=== PATIENT | female | born 1990 | race Asian ===

== ENCOUNTER → 2016-10-03 | Outpatient (CLI) | payer OTHER ==
[~2016-10-03] MED LIST: PRENTAB65 PO
[2016-10-03 12:44] LABS: GTGD 50 Grams
[2016-10-04 15:00] LABS: AFP CONCENTRATION 33.7 NG/ML; AFP MULTIPLE OF MEDIAN 0.85; AFPTS GESTATIONAL AGE 15.6 WEEKS; AFPTS INSULIN DEP DIABETIC? NO; AFPTS MATERNAL WT 102 LBS; EDD DETERMINED BY ULTRASOUND; ESTRIOL MULTIPLE OF MEDIAN 0.75; HISTORY OF NTD NO; INHIBIN A 458 PG/ML; INHIBIN A MOM 2.02; REPEAT SAMPLE? NO; hCG MULTIPLE OF MEDIAN 2.46
== END | disposition home or self-care (01) ==
LOC: C.LAB1850 10:50
PROVIDERS: ATTEND Obstetrics & Gynecology
DX: O26.842 Uterine size-date discrepancy, second trimester (principal)

== ENCOUNTER → 2016-10-11 | Outpatient (CLI) | payer OTHER | END | disposition home or self-care (01) | LOC: C.LAB1850 09:15 | PROVIDERS: ATTEND Obstetrics & Gynecology | DX: O28.1 Abnormal biochemical finding on antenatal screening of mother (principal); Z3A.00 Weeks of gestation of pregnancy not specified ==

== ENCOUNTER → 2017-01-04 | Outpatient (CLI) | payer OTHER ==
[2017-01-04 12:39] LABS: HEMATOCRIT 32.9 % (37-47)
[2017-01-04 17:51] LABS: URINE APPEARANCE CLEAR (CLEAR); URINE BILIRUBIN NEG (NEG); URINE COLOR YELLOW; URINE EPITHELIAL CELL AUTO >30 /lpf (0-5); URINE NITRITE NEG (NEG); URINE PH 7.5 (4.5-7.5); URINE SPECIFIC GRAVITY 1.014 (1.000-1.030); UROBILINOGEN NEG (NEG)
[2017-01-04 17:57] LABS: MANUAL MICROSCOPIC REQUIRED? NO; REVIEW REQ? YES
== END | disposition home or self-care (01) ==
LOC: C.LAB1850 10:08
PROVIDERS: ATTEND Obstetrics & Gynecology
DX: Z34.82 Encounter for supervision of other normal pregnancy, second trimester (principal)

== ENCOUNTER 2017-02-09 10:00 | Emergency (ER) | payer OTHER ==
[~2017-02-09] VITALS: Ht 154.9 cm; Wt 61.6 kg
[2017-02-09 10:03] VITALS: TEMP 36.7; Ht 154.9 cm; Wt 61.6 kg
--- NOTE | 2017-02-09 10:43 | EMERGENCY ROOM VISIT NOTE ---
ED Visit Note First contact with patient: 10:37 CHIEF COMPLAINT: Finger laceration HISTORY OF PRESENT ILLNESS: This 27-year-old female patient presents to the emergency department ambulatory after cutting the left third finger just prior to arrival. She accidentally cut her finger with a paring knife. The bleeding has stopped. Denies weakness or numbness of the finger. The patient has full range of motion of the fingers. The patient denies any pain. The patient denies any other injuries. The patient's tetanus shot is up to date. REVIEW OF SYSTEMS: A 6 system review of systems was completed with positives and pertinent negatives listed in the HPI. ALLERGIES: No known drug allergies MEDICATIONS: The patient is 33 weeks . PMH: vitamins SOCIAL HISTORY: The patient lives locally with family PHYSICAL EXAM: Vital Signs: Reviewed Nurse's notes, vital signs stable. GENERAL : This is a 27-year-old female, in no acute distress, well developed, well nourished. SKIN: There is a 1 cm long laceration on the flap-like aspect of the left third9 finger. The edges gape apart with traction. There is no foreign material in the wound and it looks clean. There is no bleeding. No deep structures such as tendons, bones, or nerves are seen in the base of the wound. Extension and flexion of the finger is full and strong. Full range of motion of the wrist and other fingers. Capillary refill less than 2 seconds. Normal sensation to light and sharp touch. EMERGENCY DEPARTMENT COURSE: I examined the patient. Using sterile technique the wound was cleaned with Betadine. 4 ml of 1% buffered lidocaine was used to perform a digital block to anesthetize the patient. The area was sterilely draped. Once the patient was numb, the wound was copiously irrigated under pressure with sterile saline. The wound was explored and there were no deep structures such as tendons, bone, or ligaments present. The laceration was repaired using 5 simple interrupted 5-0 nylon sutures. The patient tolerated the procedure well. The bleeding stopped. The area was cleaned with sterile saline and dressed with bacitracin ointment and bandage. The patient was discharged home in good condition. DIAGNOSIS: Finger laceration DISCHARGE INSTRUCTIONS & TREATMENT: Keep wound clean and dry. Do not allow any crusting or dried blood to accumulate on sutures. If this occurs, use a 1:1 solution of hydrogen peroxide/water on a Q-tip to clean the wound. Use an antibiotic ointment for 3-4 days, then let wound dry. Suture removal in 10-12 days. Return sooner for any signs of infection (increasing redness, swelling, drainage). Ice and elevate for swelling and pain.Keep covered when in sun until sutures removed then SPF 50 or higher for one year. Vitamin E oil if desired two weeks after suture removal for reduction of scar. Current/Historical Medications Scheduled Multivit-Min W/Fe-Fa (), 1 TAB PO DAILY Allergies Coded Allergies: No Known Allergies (Unverified , 02/09/17) Vital Signs Date Time Temp Pulse Resp B/P Pulse Ox O2 Delivery O2 Flow Rate FiO2 02/09/17 11:37 74 14 112/70 99 02/09/17 10:03 36.7 79 18 120/81 98 Room Air Departure Information Impression Primary Impression: Laceration of finger Dispostion Home / Self-Care Condition GOOD Referrals No Doctor, Assigned (PCP) Patient Instructions ED Laceration All, My [facility] Additional Instructions Keep wound clean and dry. Do not allow any crusting or dried blood to accumulate on sutures. If this occurs, use a 1:1 solution of hydrogen peroxide/ water on a Q-tip to clean the wound. Use an antibiotic ointment for 3-4 days, then let wound dry. Suture removal in 10-12 days. Return sooner for any signs of infection (increasing redness, swelling, drainage). Ice and elevate for swelling and pain.Keep covered when in sun until sutures removed then SPF 50 or higher for one year. Vitamin E oil if desired two weeks after suture removal for reduction of scar. Problem Qualifiers Primary Impression: Laceration of finger Encounter type: initial encounter Qualified Codes: S61.219A - Laceration without foreign body of unspecified finger without damage to nail, initial encounter
[2017-02-09] MEDS ORDERED: XYLOCAINE 1%/SOD BICARB 20 ML VIAL INFIL ONE (10:45)
[2017-02-09] MEDS ORDERED: PRENTAB65 PO (10:52)
[2017-02-09 11:37] VITALS: BP 112/70; PULSE 74; O2SAT 99
== END 2017-02-09 11:45 | disposition home or self-care (01) ==
LOC: C.EDB 10:02
DX: O9A.213 Injury, poisoning and certain other consequences of external causes complicating pregnancy, third trimester (principal); S61.213A Laceration without foreign body of left middle finger without damage to nail, initial encounter; W26.0XXA Contact with knife, initial encounter

== ENCOUNTER → 2017-02-28 | Outpatient (CLI) | payer OTHER | END | disposition home or self-care (01) | LOC: C.LABSPEC 15:49 | PROVIDERS: ATTEND Obstetrics & Gynecology | DX: O24.410 Gestational diabetes mellitus in pregnancy, diet controlled (principal) ==

== ENCOUNTER 2017-03-13 12:42 | Inpatient (IN) | payer OTHER ==
[~2017-03-13] VITALS: Ht 154.9 cm; Wt 52.3 kg
[2017-03-13] MEDS ORDERED: LACTATED RINGER'S 1000ML 1,000 ML IV PRN (13:10)
[2017-03-13 13:23] VITALS: Ht 154.9 cm; Wt 52.3 kg
[2017-03-13 13:54] LABS: HEMATOCRIT 38.4 % (37-47); MEAN CELL VOLUME 88.7 fL (80-100); MEAN CORPUSCULAR HEMOGLOBIN 30.7 pg (25-34); MEAN CORPUSCULAR HGB CONC 34.6 g/dl (32-36); MEAN PLATELET VOLUME 10.2 fL (7.4-10.4); PLATELET COUNT 155 K/uL (130-400); RED BLOOD COUNT 4.33 M/uL (4.2-5.4); WHITE BLOOD COUNT 6.79 K/uL (4.8-10.8)
[2017-03-13] MEDS: LACTATED RINGER'S 1000ML 1,000 ML IV SCH ×2 (15:08→16:38)
--- NOTE | 2017-03-13 15:29 | Medical Student: [facility] ---
Med Student History & Physical Date of Service Mar 13, 2017. Chief Complaint Check Labor History of Present Illness Source: patient Kae is a 27-year-old with an LEONARDO of 03-23-17 (confirmed by ultrasound on ) with a GA of 38.4 who presented today due to spontaneous rupture of membranes. Her has been complicated by gestational diabetes, which is currently diet-controlled. She has a history of an abnormal quad screen on positive for Down syndrome but a Panorama within normal limits. Today, she has noticed blood in the mucus plug but otherwise has not experienced vaginal bleeding. She says she is experiencing two contractions an hour. + ROM. Feels movements. Labs: O+ blood. Antibody negative. 1 hour screen with glucola = 134 mg/dL. Nonreactive VDRL/RPR. HBsAg negative. Rubella immune. GBS negative. Chlamydia/gonorrhea negative. Hct/Hb (01/04/2017) - 32.9/11.3 Hct/Hb (03/13/2017) - 38.4/13.3 CBC (03/13/17) - RBC 4.33, WBC 6.79, Plt 155 OB History G1: Elective at 6-7 weeks GA on 07/12/2014. JOB COACHING History Menarche at age 11. LMP 06/13/16. Typical menstrual cycle lasts 30-31 days. Flow is described as moderate to heavy. No history of OCP use or STDs. Last Pap smear occurred in 2015. No hx of abnormal Pap smears. History of vulvar cyst with subsequent surgical removal. Past Medical History Negative for DM, HTN, or other chronic conditions. Past Surgical History Vulvar cyst removal. Social History Does not drink alcohol. Never smoker. Does not use smokeless tobacco or illicit drugs. Lives with her Joshua, who is the father of the baby. 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) Allergies Coded Allergies: No Known Allergies (Unverified , 02/09/17) Home Medications Multivit-Min W/Fe-Fa (), 1 TAB PO DAILY Review of Systems Constitutional: No fever, No chills Eyes: No worsening of vision Respiratory: No shortness of breath, No dyspnea on exertion, No dyspnea at rest Cardiovascular: No chest pain, No edema Abdomen: No pain, No nausea, No vomiting, No diarrhea, No constipation Musculoskeletal: No swelling, No calf pain Genitourinary - Female: No dysuria, No problem reported Physical Exam Fundal Height: 37.5 cm Heart was clear to auscultation with no murmurs, rubs, or gallops. Lungs were clear to auscultation bilaterally. Abdominal exam reveals a soft and nontender gravid uterus. Fundal height measured 37.5 cm. Extremities were absent of edema or tenderness. Monitoring External Monitor: EFM demonstrates moderate variability. Baseline HR is 125 bpm. Absent decelerations. Absent accels. Tocodynamometer: Demonstrates contractions every 7 minutes. Laboratory Results Test 03/13/17 13:33 Assessment and Plan Ni is a 27-year-old female at 38.4 weeks GA complicated by GDM. tracing category I. For now, expectant management. Continue with EFM.
[2017-03-13] MEDS ORDERED: EpHEDrine SULFATE INJ 50 MG/ML AMP ONE (15:55)
[2017-03-13] MEDS ORDERED: FENTANYL 2MCG/ML ROPIV 1.25MG/ML 100ML BAG EPI ONE (15:55)
[2017-03-13] MEDS ORDERED: BUPIVACAINE 0.25% 30 ML VIAL ONE (15:55)
[2017-03-13] MEDS ORDERED: FENTANYL CITRATE INJ 50 MCG/1 ML 2 ML VIAL ONE (15:56)
[2017-03-13] MEDS ORDERED: NALOXONE HCL INJ 1 MG in SODIUM CHLORIDE 0.9% 1000ML 1,000 ML IV PRN (16:46)
[2017-03-13] MEDS ORDERED: LACTATED RINGER'S 1000ML 500 ML IV PRN (16:46)
[2017-03-13] MEDS ORDERED: DiphenhydrAMINE HCL 50 MG/ML VIAL IV PRN (17:00)
[2017-03-13] MEDS ORDERED: NALBUPHINE HCL INJ 10 MG/ML AMP IV PRN (17:00)
[2017-03-13] MEDS ORDERED: ONDANSETRON INJ 2 MG/ML 2 ML VIAL IV PRN (17:00)
[2017-03-13] MEDS ORDERED: EpHEDrine SULFATE INJ 50 MG/ML AMP IV PRN (17:00)
[2017-03-13] MEDS ORDERED: FENTANYL 2MCG/ML ROPIV 1.25MG/ML 100ML BAG EPI PRN (17:00)
[2017-03-13] MEDS ORDERED: NALOXONE HCL INJ 0.4 MG/1 ML VIAL/CARP IV PRN (17:00)
[2017-03-13] MEDS ORDERED: OXYTOCIN 30 UNITS/500ML NSS IV ONE (20:26)
[2017-03-13] MEDS ORDERED: HYDROCORTISONE ACETATE 25 MG SUPP PR PRN (21:00)
[2017-03-13] MEDS ORDERED: OXYTOCIN 30 UNITS/500ML NSS IV PRN (21:00)
[2017-03-13] MEDS ORDERED: SUPERCREAM 0.870 % 15GM JAR EXT PRN (21:00)
[2017-03-13] MEDS ORDERED: LANOLIN OINT EXT PRN ×2 (21:00)
[2017-03-13] MEDS ORDERED: BENZOCAINE 20% AER SPR 82.5 GM CAN EXT PRN (21:00)
[2017-03-13] MEDS ORDERED: OXYCODONE/ACETAMINOPHEN 5-325 TAB PO PRN (21:00)
--- NOTE | 2017-03-13 21:15 | Vaginal Delivery Summary ---
Vaginal Delivery Summary VAGINAL DELIVERY SUMMARY The patient progressed to complete with epidural anesthesia and began to push. She spontaneously vaginally delivered a viable female from the left occiput anterior position. The head delivered, followed by the anterior shoulder, followed by the body. No nuchal cord was noted. The baby was placed on mother's abdomen and warmed and dried. A spontaneous cry was heard. The cord was doubly clamped and cut. A segment was retained for cord gases. Cord blood was obtained. The placenta delivered spontaneously intact with a three vessel cord. The uterus and vagina were swept of all clots and debris. Pitocin was given. The uterus became firm. The cervix, vagina and perineum were inspected and a first degree perineal laceration was noted and repaired in standard fashion with 3-0 vicryl. Excellent hemostasis was noted. Sponge, instrument and needle counts were correct x 2 at the conclusion of the delivery. The patient and baby recovered in the room in stable and good condition. EBL 300ml. Apgars 7/9 Weight pending; please see nursery notes.
[2017-03-14] VITALS (7 sets, daily range): BP systolic 105–126; BP diastolic 62–83; PULSE 74–96; TEMP 36.6–37.2; O2SAT 95–98
[2017-03-14] MEDS: IBUPROFEN 600 MG TAB PO PRN ×2 (04:36→16:31)
[2017-03-14 07:22] LABS: HEMATOCRIT 36.5 % (37-47)
--- NOTE | 2017-03-14 07:31 | Anesthesia Procedure Note ---
Anesthesia Epidural Removal Nt Date & Time Mar 14, 2017 at 07:30 Vital Signs Pain Intensity: 3.5 Vital Signs Past 12 Hours Date Time Temp Pulse Resp B/P (MAP) Pulse Ox O2 Delivery O2 Flow Rate FiO2 03/14/17 04:10 37.0 76 20 113/69 (84) Room Air 03/14/17 00:05 Room Air 03/14/17 00:00 36.6 96 18 121/83 (96) Room Air Notes Mental Status: alert / awake / arousable, participated in evaluation Nausea / Vomiting: adequately controlled Pain: adequately controlled Airway Patency, RR, SpO2: stable & adequate BP & HR: stable & adequate Hydration State: stable & adequate Neuraxial Anesthesia: was administered Anesthetic Complications: no major complications apparent, pt satisfied with anesthetic care Epidural: removed without complications, with tip intact
--- NOTE | 2017-03-14 08:43 | OB/GYN Progress Note ---
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 Subjective conversation w/ patient Ambulation: ambulating normally Voiding: no voiding problems Passing Gas: Yes Diet Tolerance: Regular Diet Lochia: Small Feeding Type: Breast Feeding Notes: The patient was seen and examined at bedside. Pt received Ibuprofen 600mg at 4am. Is having some mild belly pain. Reports lochia has improved. Patient is resting comfortably in bed. Eating and urinating well. Ambulating. Mood is good. Father is present in room as well. Plan of care was described to the patient and all questions were answered. Review of Systems Constitutional: No fever, No chills Respiratory: No cough, No sputum, No wheezing, No shortness of breath Cardiac: No chest pain, No edema Abdomen: No pain, No nausea, No vomiting, No diarrhea Female : No dysuria Objective Vital Signs Date Time Temp Pulse Resp B/P (MAP) Pulse Ox O2 Delivery O2 Flow Rate FiO2 03/14/17 04:10 37.0 76 20 113/69 (84) Room Air 03/14/17 00:05 Room Air 03/14/17 00:00 36.6 96 18 121/83 (96) Room Air Physical Exam General Appearance: WELL-APPEARING, WD/WN, NO APPARENT DISTRESS Respiratory/Chest: chest non-tender, lungs clear, normal breath sounds, no respiratory distress, no accessory muscle use Cardiovascular: regular rate, rhythm, no edema, no gallop, no JVD, no murmur Abdomen: normal bowel sounds, non tender, soft, no organomegaly, no pulsatile mass Fundus: Firm, Non-Tender, Relation to Umbilicus (at the umbilicus.) Extremities: normal range of motion, non-tender, normal inspection, no pedal edema, no calf tenderness Laboratory Results Last 24 Hours Test 03/13/17 13:33 03/14/17 06:38 White Blood Count 6.79 K/uL Red Blood Count 4.33 M/uL Hemoglobin 13.3 g/dL 12.6 g/dL Hematocrit 38.4 % 36.5 % Mean Corpuscular Volume 88.7 fL Mean Corpuscular Hemoglobin 30.7 pg Mean Corpuscular Hemoglobin Concent 34.6 g/dl RDW Standard Deviation 41.7 fL RDW Coefficient of Variation 12.9 % Platelet Count 155 K/uL Mean Platelet Volume 10.2 fL Random Glucose 72 mg/dl Assessment and Plan Post- Day Number: 1 Continue Routine Care: 27F p/w SROM at 38+2. S/p vaginal delivery Day #1. GBS negative, Rubella Immune Vital signs reviewed and stable Hemoglobin 13.3-->12.6. Continue regular diet. Encourage ambulation. Encourage breast feeding and provide consultation. Continue routine post care. Continue to monitor and control pain with Ibuprofen and Percoset PRN. Monitor for baby blues and bonding. Resident Physician Supervision Note: I was present with Dr. Oneill during the history and exam. I discussed the case with the resident and agree with the findings and plan as documented in the note. Any exceptions or clarifications are listed here: [None] Documented By: Mell Lorenzo Resident Involvement: Resident Care Provided Care Provided: OB Delivery
[2017-03-14] MEDS: DOCUSATE SODIUM 100 MG CAP PO SCH ×2 (10:33→19:43)
[2017-03-14] MEDS ORDERED: BISACODYL 5 MG TABEC PO SCH (20:00)
--- NOTE | 2017-03-15 07:10 | Discharge Instructions ---
Discharge Instructions Date of Service Mar 15, 2017. Admission Reason for Admission: Check Labor Discharge Discharge Diagnosis / Problem: Discharge Goals Goal(s): Routine recovery after delivery Activity Recommendations Activity Limitations: per Instructions/Follow-up section . Instructions / Follow-Up Instructions / Follow-Up ACTIVITY RECOMMENDATIONS: * Gradual return to full activity over the next 2-3 weeks. * No lifting - nothing heavier than baby over the next 2-3 weeks. * Do not engage in vigorous exercise, sexual activity or sports until cleared by your physician. * Do not drive or operate any motorized equipment until cleared by your physician. * You may shower/bathe daily. MEDICATIONS: For discomfort or pain, you may use Acetaminophen (Tylenol), Ibuprofen (Advil), or Naproxen (Aleve) following the package directions. For constipation you may use Colace following the package directions. BREAST CARE: If you are not breast feeding: * Wear a supportive bra 24 hours a day for one to two weeks. * Avoid stimulating your breasts and nipples as much as possible during the first few weeks after delivery. * When taking a shower, have the warm water hit your back, not breasts. * When your breasts feel full, apply ice packs. Usually three to four times a day helps ease the discomfort. * Take a mild pain medication (Tylenol / Motrin) when you are uncomfortable. If breast feeding: * Use breast milk to lubricate nipples. Lansinoh cream may be used for sore nipples. You do not need to remove cream prior to breast feeding. If using a different brand of cream, check the label for directions regarding removal of cream prior to nursing. * Wear a supportive bra. * If having problems with breasts or breast feeding, call a foreign legal consultant or your health care provider. EPISIOTOMY CARE: After delivery, if you have an episiotomy (stitches), the following steps will ease discomfort and aid healing. * For the first 24 hours after delivery, place ice packs next to your episiotomy to help reduce swelling. * After the first 24 hour-period, sitz baths, either portable or in the tub, are suggested. A shower with a shower arm sprayed over the episiotomy may be comforting. * Nannette care should be done after each voiding and bowel movement. Squirt warm water from a plastic bottle over the perineum (region of the body between the anus and urinary opening) and pat dry. * Use Dermoplast to ease discomfort. Shake container. [place] directly over the episiotomy. Place a Tucks on a clean sanitary pad next to your episiotomy. SPECIAL CARE INSTRUCTIONS: When you are discharged from the hospital, it is important for you to follow the instructions listed below: * During the first week at home, you should be able to care for yourself and your baby. In addition, the usual light household activities are encouraged. * Limit your activities to the way you feel. Do not try to clean the house or move furniture. Be sensible. * If you actively engage in sports and have done so up until the time of your delivery, you may resume these activities as soon as you feel able. This may take up to one month or even longer. Use good judgment. * Continue to take your vitamins for at least six weeks after the of your baby. * Your diet need not be limited unless you were on a special diet before your delivery. Breast-feeding mothers need around 2500 calories per day and at least 64-80 ounces of fluid per day (8 to 10 glasses). * You should eat foods from the four major food groups. Crash diets or fad diets are to be avoided. Eating lean meats, fresh fruits and vegetables, low-fat dairy products, high fiber foods and a regular exercise program, will help you get back to your pre- weight without putting your health at risk. * Constipation is sometimes a problem after delivery. Take a mild laxative as needed. If breast feeding, Milk of Magnesia is acceptable to use. You may use a suppository or Fleets enema if no episiotomy. * A daily shower or tub bath is suggested. Be sure to thoroughly and gently dry the perineum. * A bloody vaginal discharge will usually continue until around four weeks post . A small amount of bleeding may continue for as long as six weeks. Vaginal discharge changes from the bright red bleeding after delivery to pink then brownish and finally yellowish-pink before becoming white and disappearing. * Bleeding may increase with activity. Your first period may come in 4-8 weeks. If you are breast feeding, your period may be delayed even longer. * [place] (sex) can begin whenever both you and your partner feel comfortable and do not have any form of genital infection. It is recommended that you wait at least six weeks for internal and external healing to occur. If you have questions, please talk to your health care practitioner. A condom should be used to prevent infection and . * Foreplay, gentle intercourse and lubrication is very important the first several times to prevent pain. A water-based lubricant such as K-Y jelly or Astroglide may be used. * If you have RH negative blood and your baby is RH positive, you will receive RHOGAM by injection prior to discharge. The nurse will give you a card to keep with you that has the date and place that you received RHOGAM after delivery. * During your care, you had a Rubella screen done to check for the presence of rubella antibodies in your blood. If your test was negative, you will receive a Rubella vaccine prior to discharge. This vaccine may cause a fever, soreness at the injection site and flu-like symptoms. If these symptoms persist, notify your health care practitioner. is not advised for one month after a Rubella vaccine. * Verbalizes understanding of car seat law as reviewed with patient nursing. * Car Seat hand-out given and reviewed with patient by nursing. * Shaken baby information reviewed with patient by nursing. Call you doctor if: * Heavy bleeding (saturating several pads an hour) or passing clots the size of your fist. * A fever >101 degrees F (38.3 degrees C) on two occasions four hours apart and /or chills. * Unusual pain in the pelvic or vaginal areas. * "Baby Blues" lasting longer than two weeks. If you have any questions or concerns, call your health care practitioner at . FOLLOW UP VISIT: * Please call the office at to schedule a 6 week examination. It is important you keep this appointment. It is important for you to make arrangements for either yearly or twice yearly check-ups thereafter. Current Hospital Diet Patient's current hospital diet: Regular OB Diet Discharge Diet Recommended Diet: Regular OB Diet Pending Studies Studies pending at discharge: no Medical Emergencies . Who to Call and When: Medical Emergencies: If at any time you feel your situation is an emergency, please call 911 immediately. . Non-Emergent Contact Non-Emergency issues call your: Manager Sql . . "Provider Documentation" section prepared by Beau Johnson. . VTE Core Measure Inpt VTE Proph given/why not?: Treatment not indicated
--- NOTE | 2017-03-15 07:10 | Progress Note ---
Subjective Mar 15, 2017. Subjective conversation w/ patient, physical exam, lab review Ambulation: ambulating normally Voiding: no voiding problems Diet Tolerance: Regular Diet Lochia: Small Objective Vital Signs Date Time Temp Pulse Resp B/P (MAP) Pulse Ox O2 Delivery O2 Flow Rate FiO2 03/14/17 23:20 36.7 78 20 117/79 (92) 98 Room Air 03/14/17 23:20 Room Air 03/14/17 19:55 36.7 83 20 126/81 (96) 95 Room Air 03/14/17 16:15 Room Air 03/14/17 16:15 36.8 84 18 107/69 (82) Room Air 03/14/17 11:15 37.2 77 18 106/70 (82) Room Air 03/14/17 08:00 Room Air 03/14/17 08:00 36.9 74 18 105/62 (76) Room Air Physical Exam General Appearance: WELL-APPEARING Abdomen: non tender Extremities: no calf tenderness Assessment and Plan Problem List Medical Problems: (1) Laceration of finger Status: Acute Post- Day#: 2 Continue Routine Care: home
[2017-03-15 07:30] VITALS: BP 122/81; PULSE 65; TEMP 36.9
[2017-03-15] MEDS: IBUPROFEN 600 MG TAB PO PRN (07:34)
[2017-03-15] MEDS: DOCUSATE SODIUM 100 MG CAP PO SCH (07:34)
[2017-03-15 13:30] VITALS: BP_DIAS 81; PULSE 65; TEMP 36.9
== END 2017-03-15 14:15 | disposition home or self-care (01) | DRG 775 ==
LOC: C.OPB 12:42 → C.LD 12:43 → C.OPB 13:11 → C.LD 13:11 → C.MS4N 23:44 → C.OBG 03-14 15:05 → EDSTATUS 03-23 12:40
PROVIDERS: ADMIT Obstetrics & Gynecology; ATTEND Obstetrics & Gynecology
PROC: 10E0XZZ Delivery of Products of Conception, External Approach (ICD-10-PCS; principal; 2017-03-13)
PROC: 0HQ9XZZ Repair Perineum Skin, External Approach (ICD-10-PCS; principal; 2017-03-13)
DX: O24.429 Gestational diabetes mellitus in childbirth, unspecified control (principal); O70.0 First degree perineal laceration during delivery; Z3A.38 38 weeks gestation of pregnancy; Z37.0 Single live birth

== ENCOUNTER → 2017-05-31 | Outpatient (CLI) | payer OTHER ==
[2017-05-31 15:06] LABS: GLUCOSE,2HR PP 77 mg/dl (70-140)
[2017-05-31 15:24] LABS: GTGD 75 Grams
== END | disposition home or self-care (01) ==
LOC: C.LAB1850 10:52
PROVIDERS: ATTEND Obstetrics & Gynecology
DX: O24.410 Gestational diabetes mellitus in pregnancy, diet controlled (principal)

== ENCOUNTER → 2017-08-12 | Outpatient (CLI) | payer OTHER ==
[2017-08-14 12:20] LABS: QUANTIF MITOGEN-NIL 6.97 IU/ML; QUANTIFERON NEGATIVE (NEGATIVE); QUANTIFERON NIL 0.07 IU/ML
== END | disposition home or self-care (01) ==
LOC: C.LABSPEC 12:10
PROVIDERS: ATTEND Family Medicine
DX: Z11.3 Encounter for screening for infections with a predominantly sexual mode of transmission (principal); Z11.1 Encounter for screening for respiratory tuberculosis